=== PATIENT | male | born 1980 ===

== ENCOUNTER 2022-09-05 16:15 | Emergency (ER) | payer OTHER ==
[~2022-09-05] VITALS: Ht 180.3 cm; Wt 96.2 kg
[2022-09-05 17:16] VITALS: BP 131/73
== END 2022-09-05 20:42 | disposition left against medical advice (07) ==
LOC: ER 16:15
DX: G93.0 Cerebral cysts (principal); Z53.21 Procedure and treatment not carried out due to patient leaving prior to being seen by health care provider
CPT/HCPCS: 70450